=== PATIENT | male | born 1960 | race Two or more races ===

== ENCOUNTER 2019-10-21 17:49 | Inpatient (IN) | payer MEDICAID ==
[~2019-10-21] VITALS: Ht 182.9 cm; Wt 126.1 kg
[2019-10-21 17:50] VITALS: BP 142/108
--- NOTE | 2019-10-21 17:50 | NUR ---
ED Nurse Note: Pt has rash in pelvic region and vascular bruising on abdomen and throughout legs. ERMD aware.
--- NOTE | 2019-10-21 17:50 | NUR ---
ED Nurse Note: Pt brought in by ambulance. centerless grinding machine adjuster reported pt was brought in for dyspnea, SOB. Pt on 4L of O2 NC. Pt reports abdominal pain on upper abdomen/diaphragm, 5/10 with palpation. Pt vital signs stable.
--- NOTE | 2019-10-21 18:02 | NUR ---
ED Nurse Note: ERMD at bedside
--- NOTE | 2019-10-21 19:12 | NUR ---
ED Nurse Note: Report given to MENDEL Feliciano.
[2019-10-21 19:21] LABS: HEMATOCRIT 45.8 % (42.0-52.0); HEMOGLOBIN 14.7 G/DL (14.2-18.0); MEAN CORPUSCULAR VOLUME 91 FL (80-99); PLATELET COUNT 168 K/UL (150-450); RED BLOOD COUNT 5.04 M/UL (4.70-6.10); RED CELL DISTRIBUTION WIDTH 15.9 % (11.6-14.8)
[2019-10-21 19:23] LABS: APPEARANCE,URINE CLEAR; BILIRUBIN, URINE 1+ (NEGATIVE); COLOR,URINE BROWN; GLUCOSE, URINE (UA) NEGATIVE (NEGATIVE); KETONES,URINE NEGATIVE (NEGATIVE); LEUKOCYTE ESTERASE ,URINE 1+ (NEGATIVE); NITRITE,URINE NEGATIVE (NEGATIVE); PH,URINE 6.5 (4.5-8.0); PROTEIN,URINE 4+ (NEGATIVE); UROBILINOGEN,URINE 8 MG/DL (0.0-1.0)
--- NOTE | 2019-10-21 19:35 | NUR ---
ED Nurse Note: Patient appears restless and unable to follow commands. Will continue to monitor closely.
[2019-10-21 19:48] LABS: ANION GAP 1 mmol/L (5-15); BLOOD UREA NITROGEN 25 mg/dL (7-18); CALCIUM 8.1 MG/DL (8.5-10.1); CARBON DIOXIDE 37 MMOL/L (21-32); CHLORIDE 106 MMOL/L (98-107); CREATININE 0.9 MG/DL (0.55-1.30); POTASSIUM 4.2 MMOL/L (3.5-5.1); SODIUM 144 MMOL/L (136-145)
--- NOTE | 2019-10-21 19:52 | Emergency Room Report ---
History of Present Illness General Chief Complaint: Dyspnea/Respdistress Source: Patient, EMS Present Illness HPI Patient is a 59-year-old female sent in by facility after increased difficulty with breathing. Prior history of COPD. He had recently been seen and had POLST which showed limited interventions. He had not been vomiting. Denies any current pain. Allergies: Coded Allergies: No Known Allergies (Unverified , 10/21/19) Patient History Past Medical History: see triage record Reviewed Nursing Documentation: PMH: Agreed; PSxH: Agreed Nursing Documentation-PMH Past Medical History: No History, Except For Hx Cardiac Problems: Yes - CHF Hx Hypertension: Yes Hx Asthma: Yes Hx COPD: Yes Hx Diabetes: Yes Review of Systems All Other Systems: limited - Review of systems: Review systems is limited by patient's being a poor historian Physical Exam Vital Signs Date Time Temp Pulse Resp B/P (MAP) Pulse Ox O2 Delivery O2 Flow Rate FiO2 10/21/19 17:44 97.9 74 20 144/102 (116) 95 Nasal Cannula 4.0 Sp02 EP Interpretation: reviewed, normal General Appearance: normal inspection, alert, obese, Chronically Ill Head: atraumatic ENT: normal ENT inspection, hearing grossly normal, normal voice Neck: normal inspection, full range of motion, supple, no bony tend Respiratory: normal inspection, no respiratory distress, no retraction, wheezing Cardiovascular #1: regular rate, rhythm, edema Gastrointestinal: normal inspection, normal bowel sounds, non tender, soft, no guarding, hernia - Ventral hernia easily reducible Genitourinary: no CVA tenderness Musculoskeletal: normal inspection, back normal, normal range of motion Neurologic: alert, responsive, normal inspection Psychiatric: normal inspection, judgement/insight normal, mood/affect normal Skin: other - Skin rash to the back of the legs Medical Decision Making Diagnostic Impression: Primary Impression: Encephalopathy ER Course Patient presented for difficulty breathing. Differential diagnosis include was not limited to congestive heart failure, COPD exacerbation, pneumonia among others. Because of complexity of patient's case laboratory tests and imaging studies were ordered. Patient was noted to be somewhat hypoxic. He started on supplemental oxygen and given breathing treatment. Patient was noted to have some elevation of his white blood count was given IV fluids as well as IV antibiotics. Dr. Jass Valadez was contacted for inpatient management due to primary care physician. Labs Test 10/21/19 18:58 10/21/19 22:23 White Blood Count 12.0 K/UL (4.8-10.8) Red Blood Count 5.04 M/UL (4.70-6.10) Hemoglobin 14.7 G/DL (14.2-18.0) Hematocrit 45.8 % (42.0-52.0) Mean Corpuscular Volume 91 FL (80-99) Mean Corpuscular Hemoglobin 29.1 PG (27.0-31.0) Mean Corpuscular Hemoglobin Concent 32.0 G/DL (32.0-36.0) Red Cell Distribution Width 15.9 % (11.6-14.8) Platelet Count 168 K/UL (150-450) Mean Platelet Volume 6.1 FL (6.5-10.1) Neutrophils (%) (Auto) % (45.0-75.0) Lymphocytes (%) (Auto) % (20.0-45.0) Monocytes (%) (Auto) % (1.0-10.0) Eosinophils (%) (Auto) % (0.0-3.0) Basophils (%) (Auto) % (0.0-2.0) Differential Total Cells Counted 100 Neutrophils % (Manual) 89 % (45-75) Lymphocytes % (Manual) 10 % (20-45) Monocytes % (Manual) 1 % (1-10) Eosinophils % (Manual) 0 % (0-3) Basophils % (Manual) 0 % (0-2) Band Neutrophils 0 % (0-8) Platelet Estimate Adequate Platelet Morphology Normal Anisocytosis 1+ Urine Color Brown Urine Appearance Clear Urine pH 6.5 (4.5-8.0) Urine Specific [place] 1.015 (1.005-1.035) Urine Protein 4+ (NEGATIVE) Urine Glucose (UA) Negative (NEGATIVE) Urine Ketones Negative (NEGATIVE) Urine Blood 2+ (NEGATIVE) Urine Nitrite Negative (NEGATIVE) Urine Bilirubin 1+ (NEGATIVE) Urine Ictotest Positive (NEGATIVE) Urine Urobilinogen 8 MG/DL (0.0-1.0) Urine Leukocyte Esterase 1+ (NEGATIVE) Urine RBC 0-2 /HPF (0 - 0) Urine WBC 0-2 /HPF (0 - 0) Urine Squamous Epithelial Cells Occasional /LPF Urine Bacteria Occasional /HPF (NONE) Sodium Level 144 MMOL/L (136-145) Potassium Level 4.2 MMOL/L (3.5-5.1) Chloride Level 106 MMOL/L (98-107) Carbon Dioxide Level 37 MMOL/L (21-32) Anion Gap 1 mmol/L (5-15) Blood Urea Nitrogen 25 mg/dL (7-18) Creatinine 0.9 MG/DL (0.55-1.30) Estimat Glomerular Filtration Rate > 60 mL/min (>60) Glucose Level 184 MG/DL (74-106) Calcium Level 8.1 MG/DL (8.5-10.1) Phosphorus Level 2.6 MG/DL (2.5-4.9) Magnesium Level 2.3 MG/DL (1.8-2.4) Total Bilirubin 2.2 MG/DL (0.2-1.0) Direct Bilirubin 0.5 MG/DL (0.0-0.3) Aspartate Amino Transf (AST/SGOT) 68 U/L (15-37) Alanine Aminotransferase (ALT/SGPT) 89 U/L (12-78) Alkaline Phosphatase 144 U/L (46-116) Total Creatine Kinase 190 U/L (26-308) Creatine Kinase MB 1.0 NG/ML (0.0-3.6) Creatine Kinase MB Relative Index 0.5 Troponin I 0.116 ng/mL (0.000-0.056) Total Protein 5.6 G/DL (6.4-8.2) Albumin 2.0 G/DL (3.4-5.0) Globulin 3.6 g/dL Albumin/Globulin Ratio 0.6 (1.0-2.7) Lactic Acid Level 1.50 mmol/L (0.66-2.22) EKG Diagnostic Results ST Segments: no acute changes Last Vital Signs Date Time Temp Pulse Resp B/P (MAP) Pulse Ox O2 Delivery O2 Flow Rate FiO2 10/21/19 17:50 79 23 Nasal Cannula 4.0 10/21/19 17:50 98.7 142/108 98 Status: unchanged Disposition: ADMITTED INPATIENT Referrals: Jorden Valadez MD (PCP) Eddi Nevarez MD Oct 21, 2019 19:52
[2019-10-21 20:10] LABS: ALANINE AMINOTRANSFERASE 89 U/L (12-78); ALBUMIN/GLOBULIN RATIO 0.6 (1.0-2.7); ALKALINE PHOSPHATASE 144 U/L (46-116); ASPARTATE AMINO TRANSFERASE 68 U/L (15-37); BILIRUBIN,TOTAL 2.2 MG/DL (0.2-1.0); CREATINE KINASE 190 U/L (26-308); PHOSPHORUS 2.6 MG/DL (2.5-4.9)
[2019-10-21 20:21] LABS: BILIRUBIN,DIRECT 0.5 MG/DL (0.0-0.3)
--- NOTE | 2019-10-21 21:10 | NUR ---
ED Nurse Note: Patient is confused and unabe to follow directions, patient pulled out IV at left AC.
[2019-10-21] MEDS ORDERED: Piperacillin/Tazobactam 3.375 GM in NS 110 ML IVPB ONE (21:15)
--- NOTE | 2019-10-21 21:17 | NUR ---
ED Nurse Note: New IV line started, IV fluids hung, 1 L N/S.
[2019-10-21] MEDS ORDERED: ACETAMINOPHEN500 M5 ORAL (21:40)
[2019-10-21] MEDS ORDERED: ASPIR 8181 MG ORAL (21:41)
[2019-10-21] MEDS ORDERED: ATIVAN1 MG ORAL (21:41)
[2019-10-21] MEDS ORDERED: BISACODYL10 M1 RC (21:42)
[2019-10-21] MEDS ORDERED: CARVEDILOL12.5 MG ORAL (21:42)
[2019-10-21] MEDS ORDERED: DOCUSATE SODIU250 MG ORAL (21:43)
[2019-10-21] MEDS ORDERED: ENTRESTO 49 MG1 EACH PO (21:43)
[2019-10-21] MEDS ORDERED: GABAPENTIN100 MG ORAL (21:44)
[2019-10-21] MEDS ORDERED: FAMOTIDINE20 MG ORAL (21:44)
[2019-10-21] MEDS ORDERED: HUMALOG100 UNIT/4 SUBQ ×2 (21:45→21:48)
[2019-10-21] MEDS ORDERED: HYDRALAZINE HCL10 MG ORAL (21:47)
[2019-10-21] MEDS ORDERED: HUMALOG 75/255 UNIT1 SUBQ (21:47)
[2019-10-21] MEDS ORDERED: IPRATROPIU0.2 MG/1 M HHN (21:48)
[2019-10-21] MEDS ORDERED: HUMALOG100 UNIT/3 SUBQ (21:48)
[2019-10-21] MEDS ORDERED: ISOSORBIDE MONO20 MG PO (21:49)
[2019-10-21] MEDS ORDERED: LOVENOX10 M1 SUBQ (21:49)
[2019-10-21] MEDS ORDERED: RANEXA500 MG ORAL (21:50)
[2019-10-21] MEDS ORDERED: TERAZOSIN HCL1 MG ORAL (21:51)
[2019-10-21 22:39] VITALS: BP 151/114
--- NOTE | 2019-10-21 22:39 | NUR ---
ED Nurse Note: Report called in to joelle OGLESBY.
--- NOTE | 2019-10-21 22:47 | NUR ---
ED Nurse Note: Patient transported to floor accompanied by RN and SPECIAL EDUCATION COORDINATOR without complication. transmission tester assessed during transport.
--- NOTE | 2019-10-21 22:55 | NUR ---
Nurse Note: Pt received from ED, is alert x2. No belongings. Patient is confused and impulsive. Complaints of difficulty breathing. applied nasal cannula 2L O2. Head of bed elevated, bed is locked in lowest position, side rails x3. tube roller applied. call light within reach. Severely edematous pitting edema in feet bilaterally R>L, ankles and calves edematous . Venous ulcers on backs of calves, taking photos to upload. Calling MD for admit orders
--- NOTE | 2019-10-21 23:00 | NUR ---
Nurse Note: Pt is alert x2. Patient is confused and inconsistent in his ability to follow directions. Patient is impulsive and trying to get out of bed. Removing nasal cannula and complaining of difficulty breathing, earlier pulled out IV. Called MD Valadez for admitting orders, input orders and given order to apply bilateral soft wrist restraints. Applied and will continue to monitor pt.
[2019-10-21 23:15] VITALS: BP 152/88
[2019-10-21] MEDS ORDERED: Ipratropium 0.02% Inh Soln 2.5ml UD HHN PRN (23:30)
[2019-10-21] MEDS ORDERED: Acetaminophen 500mg (ES) tab ORAL PRN (23:30)
[2019-10-21] MEDS ORDERED: HydrALAZINE 10mg Tab ORAL PRN (23:30)
[2019-10-22 04:00] VITALS: BP 111/72
[2019-10-22] MEDS: NovoLOG Insulin Flexpen SUBQ SCH ×4 (06:27→21:00)
--- NOTE | 2019-10-22 07:14 | NUR ---
HAND-OFF: Report given to MENDEL Alcala.
--- NOTE | 2019-10-22 07:25 | NUR ---
NURSE NOTES: Received report from MENDEL Kumar. Patient is resting in bed, in stable condition. No s/sx of SOB, breathing is even and unlabored. Pt is noted on bilateral soft-wrist restraints for pulling out IV, pt currently sleeping. Observed no presence of pain or discomfort at this time. Bed is in lowest position, brakes engaged. Call light is kept within easy reach. Will continue to monitor patient.
[2019-10-22 08:00] VITALS: BP 154/75
[2019-10-22] MEDS: Docusate 250mg cap ORAL SCH ×2 (08:12→17:25)
[2019-10-22] MEDS: LORazepam 1mg tab ORAL PRN ×2 (08:12→16:10)
[2019-10-22] MEDS: Ranolazine 500mg tab ORAL SCH ×2 (08:12→20:57)
[2019-10-22] MEDS: Carvedilol 12.5mg tab ORAL SCH ×2 (08:12→20:35)
[2019-10-22] MEDS ORDERED: Enoxaparin 60mg Inj SUBQ SCH (09:00)
[2019-10-22] MEDS ORDERED: Enoxaparin 60mg Inj SUBQ PRN (09:00)
[2019-10-22] MEDS ORDERED: Aspirin EC 81mg tab ORAL SCH (09:00)
[2019-10-22 12:00] VITALS: BP 141/86
--- NOTE | 2019-10-22 12:44 | Diagnostic Imaging Report ---
Indication: Dyspnea Comparison: None A single view chest radiograph was obtained. Findings: Pulmonary vascular congestion demonstrated with cardiomegaly. No definite pleural effusion identified. Bones are unremarkable. IMPRESSION: CHF
[2019-10-22] MEDS ORDERED: 1/2 NS 1000ml IV ONE (14:09)
--- NOTE | 2019-10-22 15:37 | NUR ---
NURSE NOTES: Patient noted with 14-beats of V-tach unsustained, performed 12-lead EKG and showed sinus rhythm with premature atrial contractions HR 78 bpm. pt also noted with positive troponin level of 0.116 observed no chest pain or shortness of breath, noted with no cardiology consult at this time. Contacted and informed Dr. Valadez of situation, Dr. Valadez acknowledged and informed this nurse to call Dr. Uribe for cardiology consult. Order entered, noted, and carried out. Will continue to monitor patient.
--- NOTE | 2019-10-22 15:41 | NUR ---
NURSE NOTES: Called Dr. Uribe's office and spoke with officer captain. Left message for Dr. Uribe regarding new cardiology consult for elevated troponin and 14-beats of unsustained V-tach and 12-lead EKG showing SR w/ PAC HR 78bpm. Instrument Technologist acknowledged and informed this nurse that Dr. Uribe will be made aware. Noted. Awaiting call back. Will continue to monitor patient.
--- NOTE | 2019-10-22 15:48 | NUR ---
NURSE NOTES:WOUND CARE NOTES Morbidly obese pt whom presented on admission with multiple ulcerations both lower ext. Open blister noted to medial/upper R thigh. Base of wound is moist and viable with loose edges.(L)1.5cm x (W)2.2cm. Periwound is dry without further skin breakdown. Large ecchymotic area noted to medial /posterior L upper thigh. Multiple necrotic ulcers with surrounding erythema noted to posterior R tibia. Multiple necrotic ulcers noted to posterior L tibia.Dry necrotic ulcer noted to dorsal L 1st metatarsal and L hallux. Dry necrotic ulcer noted to R hallux. R 3rd metatarsal noted to be black. Both heels are dry,callused and both are blanchable. Sacrum is blanchable and non-tender when palpated. Tx.Plan: Cleanse wound posterior R tibia,R foot with Saline. Apply Xeroform Gauze .Cover with ABD pad and wrap with Kerlix Drsg Daily and prn. Cleanse wound posterior L tibia, L foot with Saline. Apply Xeroform gauze. Cover with ABD pad and wrap with Kerlix Drsg Daily and prn. Apply Moisture Barrier Paste to buttocks..Cover Sacrum with Optifoam drsg. Change every 3 days and prn. Reposition at least every 2hours or as tolerated. Elevate both lower ext with pillows.
--- NOTE | 2019-10-22 16:04 | NUR ---
NURSE NOTES: Dr. Valadez seen and examined patient at bedside. MD ordered troponin level q8hr x 2 only, transfer to medical surgical floor, Dr. Valadez aware patient is DNR/DNI. Orders entered, noted, and carried out. Will continue to monitor patient.
--- NOTE | 2019-10-22 16:16 | NUR ---
CASE MANAGEMENT:REVIEW 59 YR OLD MALE BIBA FROM [facility] CC; SOB AND RIB PAIN SI: ENCEPHALOPATHY 97.9 74 20 144/102 95% ON 4L/NC WBC+12.0 TROPONIN(+) 0.116 IS: IV ZOSYN X1 1L NS BOLUS : TO TELEMETRY IS: HYTRIN PO QHS HEPARIN SQ Q12 ASA PO QD COREG PO Q12 NEURONTIN PO QID RANOLAZINE PO Q12 IVF@75/HR
--- NOTE | 2019-10-22 17:25 | NUR ---
NURSE NOTES: Dr. Uribe called back regarding patient's episode of 14 beats of v-tach unsustained. Dr. Uribe acknowledged and ordered Coreg 12.5 mg PO Q12HR x 1 dose now and magnesium sulfate 1 gm IV x 2. Orders entered, noted, and carried out. Will continue to monitor patient.
[2019-10-22] MEDS ORDERED: Carvedilol 12.5mg tab ORAL SCH (17:30)
--- NOTE | 2019-10-22 17:30 | History and Physical Report ---
DATE OF ADMISSION: 10/21/2019 HISTORY OF PRESENT ILLNESS: This is a 59-year-old male who is living at alf, came to the emergency room more confused and encephalopathic. The patient is nonverbal. The patient is currently in bed, sitting in the bed and generalized weakness, confusion. His troponins are positive, admitted to tele bed. PAST MEDICAL HISTORY: Significant for congestive heart failure, cardiomyopathy, hypertension, diabetes, comorbid obesity. MEDICATIONS: Aspirin, carvedilol, Pepcid, gabapentin, hydralazine, insulin, lorazepam, nicotine, Ranexa and . ALLERGIES: NKA. FAMILY HISTORY: Noncontributory. SOCIAL HISTORY: He lives at alf and he is a DNR. PHYSICAL EXAMINATION: VITAL SIGNS: Blood pressure is 141/86, pulse 86, respirations 20, and temperature 97.9. HEENT: AT/NC. EOMI. PERRLA. NECK: Supple. No JVD. CHEST: Bilateral decreased breath sounds. CARDIOVASCULAR: Regular rhythm. No gallop. No murmur. ABDOMEN: Soft. Positive bowel sounds. EXTREMITIES: CCE. NEUROLOGICAL: The patient has generalized weakness. LABORATORY DATA: White count 12,000, hemoglobin 15, hematocrit 45, and platelets 168,000. Chemistry panel, lactic acid 2.20 to 1.5, BUN 25, creatinine 0.9, sodium 144. Troponin is 0.116. Urine test is positive for bilirubin, 2+ blood, 8+ urobilinogen, positive leukocyte esterase. ASSESSMENT: 1. Metabolic encephalopathy. 2. Urinary tract infection. 3. Positive troponin. PLAN: The patient is DNR and DNI. We will transfer to medical floor. Consider Cardiology consult because the patient also has episode of V-tach. Continue current medical treatment to rule out of IA. Jass Valadez M.D. DR: SEPIDEH JOB#: [id number] CC:
--- NOTE | 2019-10-22 19:21 | NUR ---
HAND-OFF: Report given to MENDEL Almanza.
[2019-10-22 20:36] VITALS: BP 130/87
--- NOTE | 2019-10-22 20:53 | Consultation ---
History of Present Illness General Date patient seen: Oct 22, 2019 Chief Complaint: Dyspnea/Respdistress Present Illness HPI 59-year-old male with multi-medical communities who is very ill presented to [facility] for shortness of breath and respiratory insufficiency. Admitted for further care and management. On admission noted to have multiple wounds and abnormal LFTs requiring care and management. Surgery called to evaluate and assist with care. Patient seen, patient evaluated, chart reviewed. Limited history given patient's baseline medical condition Allergies: Coded Allergies: No Known Allergies (Unverified , 10/21/19) Medication History Scheduled Acetaminophen (Acetaminophen), 325 MG ORAL Q4H, (Reported) Aspirin* (Aspir 81*), 81 MG ORAL DAILY, (Reported) Carvedilol* (Carvedilol*), 12.5 MG ORAL EVERY 12 HOURS, (Reported) Docusate Sodium* (Docusate Sodium*), 250 MG ORAL TWICE A DAY, (Reported) Enoxaparin* (Lovenox*), 60 MG SUBQ DAILY, (Reported) Famotidine* (Pepcid 20mg tablet*), 20 MG ORAL DAILY, (Reported) Gabapentin* (Gabapentin*), 100 MG ORAL THREE TIMES A DAY, (Reported) Hydralazine Hcl* (Hydralazine Hcl*), 20 MG ORAL EVERY 4 HOURS, (Reported) Insulin Lispro (Humalog), 3 SUBQ TID, (Reported) Lorazepam* (Ativan*), 1 MG ORAL BEDTIME, (Reported) Ranolazine* (Ranexa*), 500 MG ORAL EVERY 12 HOURS, (Reported) Terazosin Hcl* (Hytrin*), 1 MG ORAL BEDTIME, (Reported) Scheduled PRN Ipratropium Amasa 0.5MG/2.5ML (Ipratropium Amasa 0.5MG/2.5ML), 0.5 MG HHN Q6H PRN for Shortness of Breath, (Reported) Miscellaneous Medications Bisacodyl (Bisacodyl), 10 MG RC, (Reported) Insulin Human Lispro (Humalog), 0 SUBQ, (Reported) Insulin Lispro (Humalog), 0 SUBQ, (Reported) Insulin Lispro (Humalog), 0 SUBQ, (Reported) Isosorbide Mononitrate (Isosorbide Mononitrate), 30 MG PO, (Reported) Sacubitril/Valsartan (Entresto 49 mg-51 mg Tablet), 1 EACH PO, (Reported) Patient History Limited by: medical condition History Provided By: Medical Record, PMD Healthcare decision maker Resuscitation status Do Not Resuscitate Advanced Directive on File Past Medical/Surgical History Past Medical/Surgical History: (1) Leukocytosis (2) Abnormal LFTs (3) Decubitus ulcers Review of Systems ROS Narrative Cannot obtain given patient's baseline medical condition Physical Exam General Appearance: mild distress Lines, tubes and drains: peripheral HEENT: mucous membranes moist Neck: normal inspection Respiratory/Chest: no respiratory distress, no accessory muscle use, decreased breath sounds Cardiovascular/Chest: normal rate Abdomen: soft, no organomegaly, no mass Skin Exam: warm/dry Neurologic: alert Last 24 Hour Vital Signs Date Time Temp Pulse Resp B/P (MAP) Pulse Ox O2 Delivery O2 Flow Rate FiO2 10/22/19 20:36 97.7 57 24 130/87 (101) 97 10/22/19 20:08 56 18 97 Nasal Cannula 2.0 28 10/22/19 20:08 97 Nasal Cannula 2.0 28 10/22/19 17:38 76 141/86 10/22/19 16:00 80 10/22/19 16:00 2.0 10/22/19 12:00 76 10/22/19 12:00 2.0 10/22/19 12:00 97.9 86 20 141/86 (104) 97 86 10/22/19 09:00 Nasal Cannula 2.0 10/22/19 08:12 80 154/95 10/22/19 08:00 2.0 10/22/19 08:00 97.7 80 20 154/75 (101) 96 82 10/22/19 08:00 96 10/22/19 04:00 97.5 86 23 111/72 (85) 96 86 10/22/19 04:00 2.0 10/22/19 04:00 92 10/22/19 00:03 2.0 10/22/19 00:00 88 10/22/19 00:00 Nasal Cannula 2.0 10/21/19 23:15 97.0 74 22 152/88 (109) 94 74 10/21/19 22:47 98.7 79 18 151/114 98 Nasal Cannula 2.0 92 10/21/19 22:39 98.7 92 18 151/114 98 Nasal Cannula 2.0 92 Intake and Output 10/21/19 10/22/19 19:00 07:00 Intake Total 0 ml Balance 0 ml Intake Oral 0 ml Laboratory Tests Test 10/21/19 22:23 10/22/19 20:15 Lactic Acid Level 1.50 mmol/L (0.66-2.22) Troponin I Pending Height (Feet): 6 Height (Inches): 0.00 Weight (Pounds): 282 Medications Current Medications Medications (Trade) Dose Ordered Sig/Chirag Route PRN Reason Start Time Stop Time Status Last Admin Dose Admin Acetaminophen (Tylenol) 650 mg Q4H PRN ORAL Mild Pain/Temp > 100.5 10/21/19 23:30 11/20/19 23:29 Aspirin (Ecotrin) 81 mg DAILY ORAL 10/22/19 09:00 11/21/19 08:59 10/22/19 08:12 Bisacodyl (Dulcolax) 10 mg Q24HRS PRN RECTAL constipation 10/21/19 23:30 11/20/19 23:29 Carvedilol (Coreg) 12.5 mg EVERY 12 HOURS ORAL 10/22/19 09:00 11/21/19 08:59 10/22/19 08:12 Dextrose (Dextrose 50%) 25 ml Q30M PRN IV Hypoglycemia 10/21/19 23:30 11/20/19 23:29 Dextrose (Dextrose 50%) 50 ml Q30M PRN IV Hypoglycemia 10/21/19 23:30 11/20/19 23:29 Docusate Sodium (Colace) 250 mg TWICE A DAY ORAL 10/22/19 09:00 11/21/19 08:59 Famotidine (Pepcid) 20 mg DAILY ORAL 10/22/19 09:00 11/21/19 08:59 10/22/19 08:12 Gabapentin (Neurontin) 100 mg QID ORAL 10/22/19 09:00 11/21/19 08:59 10/22/19 17:20 Heparin Sodium (Porcine) (Heparin 5000 units/ml) 5,000 units EVERY 12 HOURS SUBQ 10/22/19 21:00 11/21/19 20:59 Hydralazine HCl (Apresoline) 20 mg Q4H PRN ORAL For High Blood Pressure 10/21/19 23:30 11/20/19 23:29 Insulin Aspart (NovoLOG) BEFORE MEALS AND HS SUBQ 10/22/19 06:30 11/21/19 06:29 10/22/19 06:27 Ipratropium Amasa (Atrovent) 500 mcg Q6H PRN HHN Shortness of Breath 10/21/19 23:30 10/26/19 23:29 Lorazepam (Ativan) 1 mg Q6H PRN ORAL anxiety 10/21/19 23:30 10/28/19 23:29 10/22/19 16:10 Nicotine (Nicoderm) 1 patch DAILY@2200 TDERMAL 10/22/19 01:00 11/21/19 00:59 Ranolazine (Ranexa ER 500mg) 500 mg EVERY 12 HOURS ORAL 10/22/19 09:00 11/21/19 08:59 10/22/19 08:12 Sodium Chloride 1,000 ml @ 75 mls/hr [id number] IV 10/22/19 00:30 11/21/19 00:29 10/22/19 13:07 Terazosin HCl (Hytrin) 2 mg BEDTIME ORAL 10/22/19 21:00 11/21/19 20:59 Assessment/Plan Problem List: (1) Decubitus ulcers Assessment & Plan: Morbidly obese pt whom presented on admission with multiple ulcerations both lower ext. Open blister noted to medial/upper R thigh. Base of wound is moist and viable with loose edges.(L)1.5cm x (W)2.2cm. Periwound is dry without further skin breakdown. Large ecchymotic area noted to medial / posterior L upper thigh. Multiple necrotic ulcers with surrounding erythema noted to posterior R tibia. Multiple necrotic ulcers noted to posterior L tibia.Dry necrotic ulcer noted to dorsal L 1st metatarsal and L hallux. Dry necrotic ulcer noted to R hallux. R 3rd metatarsal noted to be black. Both heels are dry,callused and both are blanchable. Sacrum is blanchable and non-tender when palpated. Tx.Plan: Cleanse wound posterior R tibia,R foot with Saline. Apply Xeroform Gauze .Cover with ABD pad and wrap with Kerlix Drsg Daily and prn. Cleanse wound posterior L tibia, L foot with Saline. Apply Xeroform gauze. Cover with ABD pad and wrap with Kerlix Drsg Daily and prn. Apply Moisture Barrier Paste to buttocks..Cover Sacrum with Optifoam drsg. Change every 3 days and prn. Reposition at least every 2hours or as tolerated. Elevate both lower ext with pillows. ICD Codes: L89.90 - Pressure ulcer of unspecified site, unspecified stage SNOMED: 728186436 (2) Leukocytosis Assessment & Plan: Leukocytosis 12,000. On antibiotics. Likely etiology is respiratory. Continue with antibiotics Consider infectious disease eval Pulmonary vascular congestion demonstrated with cardiomegaly. No definite pleural effusion identified. Bones are unremarkable. IMPRESSION: CHF ICD Codes: D72.829 - Elevated white blood cell count, unspecified SNOMED: 532416756, 028179174 (3) Abnormal LFTs Assessment & Plan: Patient with abnormal LFTs and elevated T bilirubin. Etiology unknown and requires further work-up Abdominal ultrasound ordered A.m. labs We will follow with recommendations thank you allow me to participate in patient 's care ICD Codes: R94.5 - Abnormal results of liver function studies SNOMED: 738842612 Omi Hanks Oct 22, 2019 20:53
[2019-10-22] MEDS ORDERED: Terazosin 2mg cap ORAL SCH ×2 (21:00)
[2019-10-22] MEDS ORDERED: Heparin 5000 units/ml inj SUBQ SCH (21:00)
[2019-10-22] MEDS ORDERED: Terazosin 1mg cap ORAL SCH ×2 (21:00)
--- NOTE | 2019-10-23 00:20 | NUR ---
NURSE NOTES: Received patient from telemetry, drowsy but arousable. On Bilateral soft wrist restraints. Bilateral leg dressings intact. On o2 via NC at 3LPM. Bed alarm engaged. Bed locked in lowest position. Will continue close monitoring.
[2019-10-23 00:23] VITALS: BP 131/89
[2019-10-23] MEDS ORDERED: Ipratropium 0.02% Inh Soln 2.5ml UD HHN PRN (00:35)
--- NOTE | 2019-10-23 00:47 | NUR ---
INTER-FACILITY TRANSFER: Patient transferred to [facility], per Dr. Valadez. Report given to RN. Patient transferred with valuables and medications. Belongings verified upon transferr and given to RN. Family/S.O. notified of transfer.
[2019-10-23] MEDS ORDERED: HydrALAZINE 10mg Tab ORAL PRN (03:30)
[2019-10-23 04:00] VITALS: BP 154/99
[2019-10-23] MEDS: LORazepam 1mg tab ORAL PRN (04:12)
[2019-10-23] MEDS: NovoLOG Insulin Flexpen SUBQ SCH ×4 (06:12→20:34)
--- NOTE | 2019-10-23 07:19 | NUR ---
HAND-OFF: Report given to Atiya OGLESBY.
--- NOTE | 2019-10-23 07:20 | NUR ---
NURSE NOTES: Received patient in bed asleep. With bilateral soft wrist restraints in place, peripheral pulses palpable, no skin issues noted. Wound dressings intact. HOB elevated. Bed locked in lowest position. Call light within reach. Will continue plan of care.
[2019-10-23 08:05] VITALS: BP 155/110
--- NOTE | 2019-10-23 08:32 | NUR ---
RADIOLOGY DEPT., CHEST AND ABDOMEN X-RAYS COMPLETED.-P.DYE
[2019-10-23 08:33] LABS: BASOPHILS % (AUTO) 0.1 % (0.0-2.0); EOSINOPHILS % (AUTO) 0.7 % (0.0-3.0); HEMATOCRIT 41.1 % (42.0-52.0); HEMOGLOBIN 13.3 G/DL (14.2-18.0); LYMPHOCYTES % (AUTO) 10.8 % (20.0-45.0); MEAN CORPUSCULAR VOLUME 91 FL (80-99); MONOCYTES % (AUTO) 5.7 % (1.0-10.0); NEUTROPHILS % (AUTO) 82.7 % (45.0-75.0); PLATELET COUNT 151 K/UL (150-450); RED BLOOD COUNT 4.51 M/UL (4.70-6.10); RED CELL DISTRIBUTION WIDTH 15.5 % (11.6-14.8); WHITE BLOOD COUNT 8.1 K/UL (4.8-10.8)
[2019-10-23 09:00] LABS: ALANINE AMINOTRANSFERASE 67 U/L (12-78); ALBUMIN 2.1 G/DL (3.4-5.0); ALBUMIN/GLOBULIN RATIO 0.7 (1.0-2.7); ALKALINE PHOSPHATASE 125 U/L (46-116); ANION GAP 3 mmol/L (5-15); ASPARTATE AMINO TRANSFERASE 35 U/L (15-37); BILIRUBIN,TOTAL 2.2 MG/DL (0.2-1.0); BLOOD UREA NITROGEN 14 mg/dL (7-18); CALCIUM 7.6 MG/DL (8.5-10.1); CARBON DIOXIDE 38 MMOL/L (21-32); CHLORIDE 109 MMOL/L (98-107); CREATININE 0.6 MG/DL (0.55-1.30); POTASSIUM 3.4 MMOL/L (3.5-5.1); SODIUM 150 MMOL/L (136-145)
[2019-10-23] MEDS: Carvedilol 12.5mg tab ORAL SCH ×2 (09:00→20:26)
[2019-10-23 09:15] LABS: BILIRUBIN,DIRECT 1.1 MG/DL (0.0-0.3)
--- NOTE | 2019-10-23 09:20 | NUR ---
NURSE NOTES: Laboratory called, spoke to Deidre, relayed Troponin result of 0.118. Left message for Dr Valadez, spoke with Elvira. Charge Nurse aware.
[2019-10-23 09:35] LABS: INR 1.3 (0.9-1.1)
[2019-10-23] MEDS: Aspirin EC 81mg tab ORAL SCH (09:52)
[2019-10-23] MEDS: Ranolazine 500mg tab ORAL SCH ×2 (09:52→20:27)
[2019-10-23] MEDS: Docusate 250mg cap ORAL SCH ×2 (09:53→17:56)
[2019-10-23] MEDS: Heparin 5000 units/ml inj SUBQ SCH ×2 (09:54→20:32)
[2019-10-23] MEDS ORDERED: Tubing IV Secondary IV ONE (09:57)
--- NOTE | 2019-10-23 10:00 | NUR ---
NURSE NOTES: Abdominal ultrasound done. Patient diet resumed.
--- NOTE | 2019-10-23 10:06 | Cardiology Progress Note ---
Assessment/Plan Assessment/Plan The patient is seen and examined, full consult note will be dictated. Objective Last 24 Hour Vital Signs Date Time Temp Pulse Resp B/P (MAP) Pulse Ox O2 Delivery O2 Flow Rate FiO2 10/23/19 09:00 47 155/110 10/23/19 08:05 98.2 47 16 155/110 (125) 98 10/23/19 07:55 93 Nasal Cannula 3.0 32 10/23/19 07:54 63 15 93 Nasal Cannula 3.0 32 10/23/19 04:00 97.3 67 20 154/99 (117) 97 10/23/19 00:23 97.0 60 18 131/89 (103) 96 10/22/19 21:00 Nasal Cannula 2.0 10/22/19 20:36 97.7 57 24 130/87 (101) 97 10/22/19 20:08 56 18 97 Nasal Cannula 2.0 28 10/22/19 20:08 97 Nasal Cannula 2.0 28 10/22/19 20:00 2.0 10/22/19 17:38 76 141/86 10/22/19 16:00 80 10/22/19 16:00 2.0 10/22/19 12:00 76 10/22/19 12:00 2.0 10/22/19 12:00 97.9 86 20 141/86 (104) 97 86 Intake and Output 10/22/19 10/23/19 19:00 07:00 Intake Total 850 ml 500 ml Output Total 300 ml 400 ml Balance 550 ml 100 ml Intake Oral 50 ml IV Total 850 ml 450 ml Output Urine Total 300 ml 400 ml # Voids 3 2 Laboratory Tests Test 10/22/19 20:15 10/23/19 08:10 Troponin I 0.108 ng/mL (0.000-0.056) 0.118 ng/mL (0.000-0.056) White Blood Count 8.1 K/UL (4.8-10.8) Red Blood Count 4.51 M/UL (4.70-6.10) L Hemoglobin 13.3 G/DL (14.2-18.0) L Hematocrit 41.1 % (42.0-52.0) L Mean Corpuscular Volume 91 FL (80-99) Mean Corpuscular Hemoglobin 29.5 PG (27.0-31.0) Mean Corpuscular Hemoglobin Concent 32.5 G/DL (32.0-36.0) Red Cell Distribution Width 15.5 % (11.6-14.8) H Platelet Count 151 K/UL (150-450) Mean Platelet Volume 6.4 FL (6.5-10.1) L Neutrophils (%) (Auto) 82.7 % (45.0-75.0) H Lymphocytes (%) (Auto) 10.8 % (20.0-45.0) L Monocytes (%) (Auto) 5.7 % (1.0-10.0) Eosinophils (%) (Auto) 0.7 % (0.0-3.0) Basophils (%) (Auto) 0.1 % (0.0-2.0) Erythrocyte Sedimentation Rate 10 MM/HR (0-20) Prothrombin Time 13.5 SEC (9.30-11.50) H Prothromb Time International Ratio 1.3 (0.9-1.1) H Activated Partial Thromboplast Time 26 SEC (23-33) Sodium Level 150 MMOL/L (136-145) H Potassium Level 3.4 MMOL/L (3.5-5.1) L Chloride Level 109 MMOL/L (98-107) H Carbon Dioxide Level 38 MMOL/L (21-32) H Anion Gap 3 mmol/L (5-15) L Blood Urea Nitrogen 14 mg/dL (7-18) Creatinine 0.6 MG/DL (0.55-1.30) Estimat Glomerular Filtration Rate > 60 mL/min (>60) Glucose Level 114 MG/DL (74-106) H Calcium Level 7.6 MG/DL (8.5-10.1) L Magnesium Level 2.3 MG/DL (1.8-2.4) Total Bilirubin 2.2 MG/DL (0.2-1.0) H Direct Bilirubin 1.1 MG/DL (0.0-0.3) H Aspartate Amino Transf (AST/SGOT) 35 U/L (15-37) Alanine Aminotransferase (ALT/SGPT) 67 U/L (12-78) Alkaline Phosphatase 125 U/L (46-116) H C-Reactive Protein, Quantitative 0.9 mg/dL (0.00-0.90) Total Protein 4.9 G/DL (6.4-8.2) L Albumin 2.1 G/DL (3.4-5.0) L Globulin 2.8 g/dL Albumin/Globulin Ratio 0.7 (1.0-2.7) L Amylase Level 59 U/L (25-115) Lipase 88 U/L (73-393) Microbiology Date/Time Source Procedure Growth Status 10/21/19 19:07 Blood Blood Culture - Preliminary NO GROWTH AFTER 24 HOURS Resulted 10/21/19 18:58 Blood Blood Culture - Preliminary NO GROWTH AFTER 24 HOURS Resulted Joe Uribe MD Oct 23, 2019 10:06
--- NOTE | 2019-10-23 10:30 | NUR ---
NURSE NOTES: Seen and examined by Dr Uribe, orders carried out.
--- NOTE | 2019-10-23 10:40 | NUR ---
CHARGE NURSE NOTE: Na150, K-3.4, Chl.109. was notified.
[2019-10-23 12:00] VITALS: BP 146/98
--- NOTE | 2019-10-23 12:00 | NUR ---
NURSE NOTES: Left wrist restraint removed by charge nurse since patient is calm. Will observe patient's behavior.
--- NOTE | 2019-10-23 12:11 | Diagnostic Imaging Report ---
Indication: Abdominal pain Technique: Grayscale and duplex Doppler imaging of the abdomen performed. Comparison: None Findings: The liver is enlarged measuring 20 cm. Spleen is 13 cm.. Doppler interrogation of the main portal vein shows patency with hepatopedal, monophasic flow. There is no biliary ductal dilatation identified. Gallbladder is unremarkable. Small bilateral CBD is 5 mm in diameter. Pleural effusions noted. There demonstrated part of the pancreas, aorta and IVC show no definite abnormalities. 1.2 cm left renal cyst demonstrated. 2.7 cm left renal cyst demonstrated. Echogenic focus in the right kidney may be scarring. There is no hydronephrosis. IMPRESSION: Hepatomegaly. Borderline splenomegaly. Bilateral pleural effusions. Suspected scarring in the right kidney. Left renal cysts
--- NOTE | 2019-10-23 12:17 | Surgery Progress Note ---
Surgery Progress Note Subjective Additional Comments leukocytosis resolved esr / crp noted US noted lft's elevated Objective Last 24 Hour Vital Signs Date Time Temp Pulse Resp B/P (MAP) Pulse Ox O2 Delivery O2 Flow Rate FiO2 10/23/19 10:35 47 155/110 10/23/19 09:00 47 155/110 10/23/19 08:05 98.2 47 16 155/110 (125) 98 10/23/19 07:55 93 Nasal Cannula 3.0 32 10/23/19 07:54 63 15 93 Nasal Cannula 3.0 32 10/23/19 04:00 97.3 67 20 154/99 (117) 97 10/23/19 00:23 97.0 60 18 131/89 (103) 96 10/22/19 21:00 Nasal Cannula 2.0 10/22/19 20:36 97.7 57 24 130/87 (101) 97 10/22/19 20:08 56 18 97 Nasal Cannula 2.0 28 10/22/19 20:08 97 Nasal Cannula 2.0 28 10/22/19 20:00 2.0 10/22/19 17:38 76 141/86 10/22/19 16:00 80 10/22/19 16:00 2.0 I&O Intake and Output 10/22/19 10/23/19 18:59 06:59 Intake Total 850 ml 500 ml Output Total 300 ml 400 ml Balance 550 ml 100 ml Intake Oral 50 ml IV Total 850 ml 450 ml Output Urine Total 300 ml 400 ml # Voids 3 2 Cardiovascular: RSR Respiratory: clear Abdomen: soft, non-tender, present bowel sounds Extremities: no tenderness, no cyanosis Laboratory Tests Test 10/22/19 20:15 10/23/19 08:10 Troponin I 0.108 ng/mL (0.000-0.056) 0.118 ng/mL (0.000-0.056) White Blood Count 8.1 K/UL (4.8-10.8) Red Blood Count 4.51 M/UL (4.70-6.10) L Hemoglobin 13.3 G/DL (14.2-18.0) L Hematocrit 41.1 % (42.0-52.0) L Mean Corpuscular Volume 91 FL (80-99) Mean Corpuscular Hemoglobin 29.5 PG (27.0-31.0) Mean Corpuscular Hemoglobin Concent 32.5 G/DL (32.0-36.0) Red Cell Distribution Width 15.5 % (11.6-14.8) H Platelet Count 151 K/UL (150-450) Mean Platelet Volume 6.4 FL (6.5-10.1) L Neutrophils (%) (Auto) 82.7 % (45.0-75.0) H Lymphocytes (%) (Auto) 10.8 % (20.0-45.0) L Monocytes (%) (Auto) 5.7 % (1.0-10.0) Eosinophils (%) (Auto) 0.7 % (0.0-3.0) Basophils (%) (Auto) 0.1 % (0.0-2.0) Erythrocyte Sedimentation Rate 10 MM/HR (0-20) Prothrombin Time 13.5 SEC (9.30-11.50) H Prothromb Time International Ratio 1.3 (0.9-1.1) H Activated Partial Thromboplast Time 26 SEC (23-33) Sodium Level 150 MMOL/L (136-145) H Potassium Level 3.4 MMOL/L (3.5-5.1) L Chloride Level 109 MMOL/L (98-107) H Carbon Dioxide Level 38 MMOL/L (21-32) H Anion Gap 3 mmol/L (5-15) L Blood Urea Nitrogen 14 mg/dL (7-18) Creatinine 0.6 MG/DL (0.55-1.30) Estimat Glomerular Filtration Rate > 60 mL/min (>60) Glucose Level 114 MG/DL (74-106) H Calcium Level 7.6 MG/DL (8.5-10.1) L Magnesium Level 2.3 MG/DL (1.8-2.4) Total Bilirubin 2.2 MG/DL (0.2-1.0) H Direct Bilirubin 1.1 MG/DL (0.0-0.3) H Aspartate Amino Transf (AST/SGOT) 35 U/L (15-37) Alanine Aminotransferase (ALT/SGPT) 67 U/L (12-78) Alkaline Phosphatase 125 U/L (46-116) H C-Reactive Protein, Quantitative 0.9 mg/dL (0.00-0.90) Total Protein 4.9 G/DL (6.4-8.2) L Albumin 2.1 G/DL (3.4-5.0) L Globulin 2.8 g/dL Albumin/Globulin Ratio 0.7 (1.0-2.7) L Amylase Level 59 U/L (25-115) Lipase 88 U/L (73-393) Plan Problems: (1) Decubitus ulcers Assessment & Plan: Morbidly obese pt whom presented on admission with multiple ulcerations both lower ext. Open blister noted to medial/upper R thigh. Base of wound is moist and viable with loose edges.(L)1.5cm x (W)2.2cm. Periwound is dry without further skin breakdown. Large ecchymotic area noted to medial / posterior L upper thigh. Multiple necrotic ulcers with surrounding erythema noted to posterior R tibia. Multiple necrotic ulcers noted to posterior L tibia.Dry necrotic ulcer noted to dorsal L 1st metatarsal and L hallux. Dry necrotic ulcer noted to R hallux. R 3rd metatarsal noted to be black. Both heels are dry,callused and both are blanchable. Sacrum is blanchable and non-tender when palpated. Tx.Plan: Cleanse wound posterior R tibia,R foot with Saline. Apply Xeroform Gauze .Cover with ABD pad and wrap with Kerlix Drsg Daily and prn. Cleanse wound posterior L tibia, L foot with Saline. Apply Xeroform gauze. Cover with ABD pad and wrap with Kerlix Drsg Daily and prn. Apply Moisture Barrier Paste to buttocks..Cover Sacrum with Optifoam drsg. Change every 3 days and prn. Reposition at least every 2hours or as tolerated. Elevate both lower ext with pillows. (2) Leukocytosis Assessment & Plan: Leukocytosis 12,000. On antibiotics. resolved Likely etiology is respiratory. Continue with antibiotics Consider infectious disease eval Pulmonary vascular congestion demonstrated with cardiomegaly. No definite pleural effusion identified. Bones are unremarkable. IMPRESSION: CHF (3) Abnormal LFTs Assessment & Plan: Patient with abnormal LFTs and elevated T bilirubin. Etiology unknown and requires further work-up Abdominal ultrasound ordered A.m. labs We will follow with recommendations thank you allow me to participate in patient 's care The liver is enlarged measuring 20 cm. Spleen is 13 cm.. Doppler interrogation of the main portal vein shows patency with hepatopedal, monophasic flow. There is no biliary ductal dilatation identified. Gallbladder is unremarkable. Small bilateral CBD is 5 mm in diameter. Pleural effusions noted. There demonstrated part of the pancreas, aorta and IVC show no definite abnormalities. 1.2 cm left renal cyst demonstrated. 2.7 cm left renal cyst demonstrated. Echogenic focus in the right kidney may be scarring. There is no hydronephrosis. IMPRESSION: Hepatomegaly. Borderline splenomegaly. Bilateral pleural effusions. Suspected scarring in the right kidney. Left renal cysts Omi Hanks Oct 23, 2019 12:17
--- NOTE | 2019-10-23 13:50 | NUR ---
CASE MANAGEMENT: REVIEW 10/23/19 IS: ENCEPHALOPATHY 98.2 47 16 155/110 98% 2l NC NA 150 K 3.4 CL-109 ALK PHOS 125 TROPONIN 0.118 + ALBUMIN 2.1 SI: NEURONTIN PO QID COREG PO Q12H HYTRIN PO QHS RANEXA ER PO Q12H HEPARIN SQ Q12H NORVASC PO QD IVF @ 75MLS/HR ATIVAN PO Q6H MED-SURG 4 EAST ~~~~~~PLAN~~~~~ DNR/DNI CONTINUE WOUND CARE DRSG CHANGES CARDIOLOGY CONSULT POTASSIUM REPLACEMENT GIVEN
--- NOTE | 2019-10-23 13:54 | Diagnostic Imaging Report ---
Indication: Abdominal pain Comparison: None Single view of the abdomen obtained Findings: Bowel gas pattern is nonspecific. There is moderate colonic stool on the right side. No mass, ectopic calcifications, or abnormal gas collections are identified. The bones are unremarkable. Spinal vertebral endplate enthesophyte is noted throughout the thoracic and lumbar spine. Impression: No acute findings
--- NOTE | 2019-10-23 13:55 | Diagnostic Imaging Report ---
Indication: Dyspnea Comparison: 10/21/2019 A single view chest radiograph was obtained. Findings: Pulmonary vascularity and heart size are prominent. Interstitial densities demonstrated likely mild interstitial edema in this context. No consolidation or pleural effusions are identified. IMPRESSION: Mild CHF
[2019-10-23 16:00] VITALS: BP 138/103
--- NOTE | 2019-10-23 16:10 | NUR ---
CHARGE NURSE NOTE: BP158/103, HR 77bpm, no pain, no temp. was notified.
--- NOTE | 2019-10-23 16:25 | NUR ---
DISCHARGE PLANNING DISCHARGE ORDER NOTED CALLED [facility] AND SPOKE WITH ISELA WHO PROVIDED ROOM NUMBER DISCHARGING TO [facility] ROOM [address]A INTERMEDIATE T: [phone] FOR REPORT [facility] HAS BEEN ARRANGED FOR 183 PICK
--- NOTE | 2019-10-23 19:24 | NUR ---
HAND-OFF: Report given to
--- NOTE | 2019-10-23 19:25 | NUR ---
NURSE NOTES: Received patient on bed, awake and responsive. respirations even and unlabored. no sob. on cannula at 3 lpm. no pain or discomfort. bed locked and lowest position. call light and light button within easy reach. will continue plan of care.
[2019-10-23] MEDS ORDERED: Terazosin 1mg cap ORAL SCH (21:00)
[2019-10-24] MEDS: Acetaminophen 500mg (ES) tab ORAL PRN ×2 (02:51→18:24)
[2019-10-24] MEDS: NovoLOG Insulin Flexpen SUBQ SCH ×3 (06:03→16:22)
[2019-10-24 06:38] LABS: BASOPHILS % (AUTO) 0.3 % (0.0-2.0); EOSINOPHILS % (AUTO) 0.2 % (0.0-3.0); HEMOGLOBIN 13.8 G/DL (14.2-18.0); LYMPHOCYTES % (AUTO) 10.9 % (20.0-45.0); MEAN CORPUSCULAR VOLUME 92 FL (80-99); MONOCYTES % (AUTO) 5.2 % (1.0-10.0); NEUTROPHILS % (AUTO) 83.4 % (45.0-75.0); PLATELET COUNT 185 K/UL (150-450); RED BLOOD COUNT 4.79 M/UL (4.70-6.10); RED CELL DISTRIBUTION WIDTH 15.9 % (11.6-14.8); WHITE BLOOD COUNT 9.6 K/UL (4.8-10.8)
[2019-10-24 07:21] LABS: ALANINE AMINOTRANSFERASE 75 U/L (12-78); ALBUMIN 2.2 G/DL (3.4-5.0); ALBUMIN/GLOBULIN RATIO 0.7 (1.0-2.7); ALKALINE PHOSPHATASE 157 U/L (46-116); ANION GAP 4 mmol/L (5-15); ASPARTATE AMINO TRANSFERASE 40 U/L (15-37); BILIRUBIN,TOTAL 2.8 MG/DL (0.2-1.0); BLOOD UREA NITROGEN 14 mg/dL (7-18); CALCIUM 7.8 MG/DL (8.5-10.1); CARBON DIOXIDE 34 MMOL/L (21-32); CHLORIDE 106 MMOL/L (98-107); CREATININE 0.8 MG/DL (0.55-1.30); POTASSIUM 3.5 MMOL/L (3.5-5.1); SODIUM 144 MMOL/L (136-145)
--- NOTE | 2019-10-24 07:23 | NUR ---
HAND-OFF: Report given to nate steward.
--- NOTE | 2019-10-24 07:25 | NUR ---
NURSE NOTES: Handoff received from MENDEL Ritchie. Patient received awake and alert and able to make needs known. No acute signs of distress noted. patient is on nasal cannula, breathing unlabored, patient has bilateral soft wrist restraints. IV site is clean dry and intact, running prescribed fluids@ 75ml/hr. Bed in the low and locked position with call light within reach, will continue to monitor.
[2019-10-24 07:28] LABS: BILIRUBIN,DIRECT 1.4 MG/DL (0.0-0.3)
[2019-10-24 08:00] VITALS: BP 146/103
[2019-10-24] MEDS: Docusate 250mg cap ORAL SCH ×2 (09:23→17:37)
[2019-10-24] MEDS: Carvedilol 12.5mg tab ORAL SCH (09:24)
[2019-10-24] MEDS: Aspirin EC 81mg tab ORAL SCH (09:24)
[2019-10-24] MEDS: Ranolazine 500mg tab ORAL SCH (09:24)
[2019-10-24] MEDS: Heparin 5000 units/ml inj SUBQ SCH (09:26)
[2019-10-24] MEDS: LORazepam 1mg tab ORAL PRN (09:42)
[2019-10-24] MEDS ORDERED: Spironolactone 25mg tab ORAL SCH (09:45)
--- NOTE | 2019-10-24 10:00 | NUR ---
NURSE NOTES: Patient has discharge order for tonight at 18:30 patient removed from restraints, keeping a close watch on patient to see if he can tolerate removal of restraints.
--- NOTE | 2019-10-24 11:42 | NUR ---
NURSE NOTES: patient tolerating restraint removal well. contacted Dr Valadez to see if he can give order for removal of restraints.
[2019-10-24 12:00] VITALS: BP 139/103
--- NOTE | 2019-10-24 13:22 | NUR ---
CHARGE NURSE NOTE: Pt is restless, trying to get out of the bed. Ativan PO was given by primaryRN. was called, message left.
--- NOTE | 2019-10-24 13:26 | NUR ---
NURSE NOTES: Patient placed back on restraints after failing to tolerate being off restraints. patient observed trying to climb out of bed multiple times. Patient constantly removing nasal cannula, patient is confused calling out for Marybelle and talking to himself.
[2019-10-24] MEDS ORDERED: LORazepam Inj 2mg/ml 1ml IM SCH (13:45)
--- NOTE | 2019-10-24 13:51 | NUR ---
NURSE NOTES: Called and gave report to Preeti at [facility], no pickup time as of yet.
--- NOTE | 2019-10-24 15:30 | NUR ---
NURSE NOTES: Restraints discontinued per MD orders.
[2019-10-24 16:00] VITALS: BP 132/81
--- NOTE | 2019-10-24 16:30 | Consultation ---
DATE OF CONSULTATION: 10/23/2019 CARDIOLOGY CONSULTATION CONSULTING PHYSICIAN: Joe Uribe M.D. REFERRING PHYSICIAN: Jorden Valadez M.D. REASON FOR CONSULTATION: Management of shortness of breath. HISTORY OF PRESENT ILLNESS: The patient is a very unfortunate 59-year-old gentleman, who was sent from the facility for management of shortness of breath. The patient has underlying history of chronic obstructive pulmonary disease. At the time of arrival to the hospital, the patient had blood pressure of 144/102 mmHg and pulse of 74. His cardiovascular history is significant for history of congestive heart failure as well as hypertension. CAD risk factors include diabetes mellitus and hypertension. He is a very poor historian and it is not clear whether he had history of tobacco use in the past. His O2 saturation at the time of arrival to this facility was 95% on 4 L oxygen. Initial 12-lead electrocardiogram in the emergency department showed normal sinus rhythm and no acute ischemic changes. His first troponin I level was however elevated at 0.1. Chemistry also showed elevated lactic acid at 2.2 and mild elevation of liver function tests. The patient was admitted to telemetry for further evaluation and management. PAST MEDICAL HISTORY: 1. Congestive heart failure. 2. Hypertension. 3. COPD. 4. Diabetes mellitus. REVIEW OF SYSTEMS: A 12-system review done was essentially negative except what was mentioned in the history of present illness. SOCIAL HISTORY: Not known history of tobacco, alcohol, or illicit drug use. PAST SURGICAL HISTORY: Unknown. ALLERGIES: No known drug allergies. MEDICATIONS: List of medications in the nursing facility includes acetaminophen 325 mg q.4 hours p.r.n. pain, aspirin 81 mg p.o. daily, bisacodyl 10 mg rectal, carvedilol 12.5 mg q.12 hours, Colace 250 mg twice daily, enoxaparin 60 mg subcutaneous daily, Pepcid 20 mg p.o. daily, gabapentin 100 mg p.o. 3 times a day, hydralazine 20 mg p.o. q.4 hours, Humalog insulin, Atrovent 0.5 mg HHN q.6 hours p.r.n. shortness of breath, isosorbide mononitrate 30 mg p.o. daily, Ativan 1 mg p.o. nightly, Ranexa 500 mg q.12 hours, Entresto 49/51 one tablet p.o. twice daily, and Hytrin 1 mg p.o. nightly. PHYSICAL EXAMINATION: VITAL SIGNS: Blood pressure is 144/102, pulse of 74, respirations 20, temperature 97.9 degrees Fahrenheit, and O2 saturation 95% on 4 L oxygen via nasal cannula. GENERAL: This is a very unfortunate 59-year-old morbidly obese, chronically ill patient. HEENT: Atraumatic and normocephalic. Anicteric. Pupils are equal, round, and reactive to light and accommodation. Extraocular muscles intact. NECK: JVP less than 5 cm. No carotid bruit. Carotid upstrokes 2+ bilaterally. CARDIOVASCULAR: Normal S1, S2. Regular rate and rhythm. No murmurs, gallops, or rubs. PMI is at fourth intercostal space at midclavicular line. LUNGS: Bilateral rhonchi. ABDOMEN: Soft, nontender. No guarding. Ventral hernia that is reducible. EXTREMITIES: No evidence of edema, clubbing, or cyanosis. LABORATORY FINDINGS: WBC is 12.0, hemoglobin of 14.7, hematocrit of 45.8%, and platelet count 168,000. Sodium 144, potassium is 4.2, chloride 106, bicarbonate 37, BUN 25, creatinine 0.9, glucose is 184, calcium is 8.1, and magnesium is 2.3. Troponin I 0.1 and 0.1. Chest x-ray showed pulmonary vascular congestion with cardiomegaly consistent with mild congestive heart failure. ASSESSMENT AND PLAN: 1. Dyspnea. This could be the combination of COPD and congestive heart failure. I would like to order beta-natriuretic peptide as well as 2D echocardiogram for assessment of systolic and diastolic function. Further therapeutic and diagnostic decision will be based on the results of the above tests. It appears that the patient has history of cardiomyopathy as he has been on Entresto, which is a treatment for severe LV systolic dysfunction. The hospital does not have this medication in formulary; however, we can use other ARBs in the hospital or have the patient use his own Entresto in this hospital. 2. History of diabetes mellitus. 3. History of hypertension. We will continue with guideline-directed medical therapy, which controls the patient's blood pressure as well. I would like to thank, Dr. Valadez, for the courtesy of this consultation. Joe Uribe M.D. DR: JUAN MIGUEL JOB#: [id number] CC:
--- NOTE | 2019-10-24 18:18 | Surgery Progress Note ---
Surgery Progress Note Subjective Additional Comments Patient seen and examined bedside. Comfortable. Denies any nausea vomiting fever chills. Denies any pain. States that he feels otherwise well. No complaints tolerating diet Objective Last 24 Hour Vital Signs Date Time Temp Pulse Resp B/P (MAP) Pulse Ox O2 Delivery O2 Flow Rate FiO2 10/24/19 16:00 97.0 82 18 132/81 (98) 99 10/24/19 12:00 97.8 72 19 139/103 (115) 97 10/24/19 09:24 61 146/103 10/24/19 09:24 61 146/103 10/24/19 09:00 Nasal Cannula 2.0 10/24/19 08:50 61 13 98 Nasal Cannula 3.0 32 51 16 98 10/24/19 08:49 98 Nasal Cannula 3.0 32 10/24/19 08:49 51 16 98 Nasal Cannula 3.0 32 10/24/19 08:00 98.4 75 19 146/103 (117) 98 10/23/19 21:00 Nasal Cannula 2.0 10/23/19 20:26 74 151/98 10/23/19 18:30 65 15 95 Nasal Cannula 3.0 32 10/23/19 18:30 94 Nasal Cannula 3.0 32 I&O Intake and Output 10/23/19 10/24/19 19:00 07:00 Intake Total 915 ml 750 ml Balance 915 ml 750 ml Intake Oral 840 ml IV Total 75 ml 750 ml # Voids 10 1 Dressing: other Wound: other Cardiovascular: RSR Respiratory: clear Abdomen: soft, non-tender, present bowel sounds, non-distended Extremities: no tenderness, no cyanosis Laboratory Tests Test 10/24/19 06:02 White Blood Count 9.6 K/UL (4.8-10.8) Red Blood Count 4.79 M/UL (4.70-6.10) Hemoglobin 13.8 G/DL (14.2-18.0) L Hematocrit 44.0 % (42.0-52.0) Mean Corpuscular Volume 92 FL (80-99) Mean Corpuscular Hemoglobin 28.9 PG (27.0-31.0) Mean Corpuscular Hemoglobin Concent 31.4 G/DL (32.0-36.0) L Red Cell Distribution Width 15.9 % (11.6-14.8) H Platelet Count 185 K/UL (150-450) Mean Platelet Volume 6.6 FL (6.5-10.1) Neutrophils (%) (Auto) 83.4 % (45.0-75.0) H Lymphocytes (%) (Auto) 10.9 % (20.0-45.0) L Monocytes (%) (Auto) 5.2 % (1.0-10.0) Eosinophils (%) (Auto) 0.2 % (0.0-3.0) Basophils (%) (Auto) 0.3 % (0.0-2.0) Sodium Level 144 MMOL/L (136-145) Potassium Level 3.5 MMOL/L (3.5-5.1) Chloride Level 106 MMOL/L (98-107) Carbon Dioxide Level 34 MMOL/L (21-32) H Anion Gap 4 mmol/L (5-15) L Blood Urea Nitrogen 14 mg/dL (7-18) Creatinine 0.8 MG/DL (0.55-1.30) Estimat Glomerular Filtration Rate > 60 mL/min (>60) Glucose Level 152 MG/DL (74-106) H Calcium Level 7.8 MG/DL (8.5-10.1) L Total Bilirubin 2.8 MG/DL (0.2-1.0) H Direct Bilirubin 1.4 MG/DL (0.0-0.3) H Aspartate Amino Transf (AST/SGOT) 40 U/L (15-37) H Alanine Aminotransferase (ALT/SGPT) 75 U/L (12-78) Alkaline Phosphatase 157 U/L (46-116) H Total Protein 5.5 G/DL (6.4-8.2) L Albumin 2.2 G/DL (3.4-5.0) L Globulin 3.3 g/dL Albumin/Globulin Ratio 0.7 (1.0-2.7) L Plan Problems: (1) Decubitus ulcers Assessment & Plan: Morbidly obese pt whom presented on admission with multiple ulcerations both lower ext. Open blister noted to medial/upper R thigh. Base of wound is moist and viable with loose edges.(L)1.5cm x (W)2.2cm. Periwound is dry without further skin breakdown. Large ecchymotic area noted to medial / posterior L upper thigh. Multiple necrotic ulcers with surrounding erythema noted to posterior R tibia. Multiple necrotic ulcers noted to posterior L tibia.Dry necrotic ulcer noted to dorsal L 1st metatarsal and L hallux. Dry necrotic ulcer noted to R hallux. R 3rd metatarsal noted to be black. Both heels are dry,callused and both are blanchable. Sacrum is blanchable and non-tender when palpated. Tx.Plan: Cleanse wound posterior R tibia,R foot with Saline. Apply Xeroform Gauze .Cover with ABD pad and wrap with Kerlix Drsg Daily and prn. Cleanse wound posterior L tibia, L foot with Saline. Apply Xeroform gauze. Cover with ABD pad and wrap with Kerlix Drsg Daily and prn. Apply Moisture Barrier Paste to buttocks..Cover Sacrum with Optifoam drsg. Change every 3 days and prn. Reposition at least every 2hours or as tolerated. Elevate both lower ext with pillows. (2) Leukocytosis Assessment & Plan: Leukocytosis 12,000. On antibiotics. resolved Likely etiology is respiratory. Continue with antibiotics Consider infectious disease eval Pulmonary vascular congestion demonstrated with cardiomegaly. No definite pleural effusion identified. Bones are unremarkable. IMPRESSION: CHF (3) Abnormal LFTs Assessment & Plan: Patient with abnormal LFTs and elevated T bilirubin. Etiology unknown and requires further work-up Abdominal ultrasound ordered A.m. labs We will follow with recommendations thank you allow me to participate in patient 's care The liver is enlarged measuring 20 cm. Spleen is 13 cm.. Doppler interrogation of the main portal vein shows patency with hepatopedal, monophasic flow. There is no biliary ductal dilatation identified. Gallbladder is unremarkable. Small bilateral CBD is 5 mm in diameter. Pleural effusions noted. There demonstrated part of the pancreas, aorta and IVC show no definite abnormalities. 1.2 cm left renal cyst demonstrated. 2.7 cm left renal cyst demonstrated. Echogenic focus in the right kidney may be scarring. There is no hydronephrosis. IMPRESSION: Hepatomegaly. Borderline splenomegaly. Bilateral pleural effusions. Suspected scarring in the right kidney. Left renal cysts Omi Hanks Oct 24, 2019 18:18
--- NOTE | 2019-10-24 18:34 | NUR ---
NURSE NOTES: Patient discharged and left with EMS patient left slightly drowsy, stable with no acute signs of distress. Tylenol given before discharge as patient complaining of right shoulder pain. Vitals stable, IV removed, slight bleeding noted, pressure applied to stop bleeding and taped with gauze. patient did not have any belongings or medications to discharge with.
--- NOTE | 2019-10-26 11:50 | Discharge Summary ---
Discharge Summary Discharge Summary _ DATE OF ADMISSION: 10/21/2019 DATE OF DISCHARGE: 10/24/2019 DISCHARGED BY: Dr. Valadez REASON FOR ADMISSION: 59 years old male with past medical history of COPD, congestive heart failure, hypertension, diabetes mellitus, venous stasis ulcers/diabetic ulcers , [facility] due to increased difficulty with breathing. Per POLST patient DNR/DNI with selective treatment. Laboratory work-up revealed elevated diastolic blood pressure 144 /102 . Patient required supplemental oxygen and on 4 L oxygen via nasal cannula saturated 95%. Laboratory work-up revealed mild leukocytosis with WBC 12, stable hemoglobin and hematocrit. Stable electrolytes. BUN 25, creatinine 0.9. Glucose 184. Total bilirubin 2.2 , direct bilirubin 0.5. AST 68, ALT 89 . Troponin 0.116. EKG revealed sinus rhythm , no acute ischemic changes . Albumin 2.0. Lactic acid 1.5 . Chest x-ray revealed evidence of congestive heart failure. Urinalysis revealed no evidence of urinary tract infection. Patient subsequently admitted to telemetry floor for further management. CONSULTANTS: zipper machine operator Dr. Uribe surgery Dr. Hanks [facility]SE: Patient initially admitted to telemetry floor. Serial troponin were monitored . Echocardiogram revealed global left ventricular hypokinesis with left ventricular ejection fraction 25 to 30%. No evidence of pericardial effusion. Mitral inflow indicated restrictive pattern, implying severely elevated left atrial pressure grade 3. Right ventricular systolic pressure of 63 consistent with moderate pulmonary hypertension. Second troponin 0.108 , the last troponin 0.118. Minimally elevated troponin possibly due to CHF and severe cardiomyopathy. No chest pain. Limited interventions as per POLST as mentioned above. Per zipper machine operator , patient had congestive heart failure with severe left ventricular systolic dysfunction . Patient had been on Entresto, which this hospital does not have in the formulary . Patient was continued with guideline directed medical therapy for congestive heart failure with another ARB, beta-nenita and diuretic with close monitoring of volumes. Dyspnea was likely due to combination of COPD and CHF. Antiplatelet therapy with aspirin continued. DVT and GI prophylaxis provided. Blood pressure was managed with multiply antihypertensive regimen. Prior to discharge blood pressure 132/81. Ranexa continued. Supplemental oxygen provided and titrated to keep oximetry above 92%. Pulmonary toilet with bronchodilator provided around the clock and as needed. Blood sugar was managed with sliding scale of insulin. Supportive care provided. Surgeon seen the patient for multiply ulcers bilateral lower extremity. Wound care provided as per surgeon recommendation. Continue wound care at the facility. Leukocytosis ,initially present ,resolved , likely was reactive. Blood cultures were negative. Urinalysis revealed no evidence of UTI. Patient was kept off antibiotic. Patient undergone abdominal ultrasound due to abnormal LFT , which revealed hepatomegaly borderline splenomegaly. No hydronephrosis. Abnormal LFT were likely due to liver disease . Patient clinically stabilized and was ready for transfer to the [facility]. Follow up with medical doctor at the facility. For continuation of care FINAL DIAGNOSES: Cardiomyopathy with ejection fraction 25 to 30% Congestive heart failure with severe left ventricular systolic dysfunction Hypertension Diabetes mellitus Metabolic encephalopathy Elevated troponin Multiply ulcers bilateral lower extremity Abnormal LFT Leukocytosis -resolved DISCHARGE MEDICATIONS: See Medication Reconciliation list. DISCHARGE INSTRUCTIONS: Patient was [facility] to [facility]. Follow up with medical doctor at the facility. I have been assigned to dictate discharge summary for this account. I was not involved in the patient's management. Shannon Hoyos NP Oct 26, 2019 11:50
== END 2019-10-24 18:38 | DRG 52 ==
LOC: EDBD 17:49 → EMR 19:45 → 2E 19:50 → EDBEDREQ 20:47 → 4E 10-23 00:03
DX: G93.41 Metabolic encephalopathy (principal); I11.0 Hypertensive heart disease with heart failure; I50.20 Unspecified systolic (congestive) heart failure; I27.20 Pulmonary hypertension, unspecified; Z79.82 Long term (current) use of aspirin; Z79.4 Long term (current) use of insulin; Z66 Do not resuscitate; R94.5 Abnormal results of liver function studies; I42.9 Cardiomyopathy, unspecified; L89.899 Pressure ulcer of other site, unspecified stage; J44.9 Chronic obstructive pulmonary disease, unspecified; E66.01 Morbid (severe) obesity due to excess calories; I34.0 Nonrheumatic mitral (valve) insufficiency; I36.1 Nonrheumatic tricuspid (valve) insufficiency
CPT/HCPCS: 36415; 71045; 74018; 76700; 80053; 81003; 82150; 82248; 82550; 82553; 82962; 83605; 83690; 83735; 84100; 84484; 85007; 85025; 85610; 85651; 85730; 86140; 87040; 87081; 93005; 93306; 94640; 94664; 96365; 96366; 99285; J1815; J7030